=== PATIENT | female | born 1970 | race Caucasian/White ===

== ENCOUNTER 2016-11-08 10:56 | Emergency (ER) | payer BC, OTHER ==
[2016-11-08 11:00] VITALS: BMI 24.7
[2016-11-08 11:01] VITALS: BP 131/79; PULSE 70; RESP 18; TEMP 98.7; O2SAT 97
--- NOTE | 2016-11-08 11:12 | C.PDOC ---
History Of Present Illness 46 yr old female presents to the ER with complaints of right lower wisdom tooth pain for 1 day. Patient states she saw her dentist but was told "if less then 4 infections a year, there is no need to have tooth pulled. Patient states she was sent home with no medicine and the pain returned when she went back home. Patient denies fever, chills, mouth swelling, neck pain or headache. Time Seen by Provider: 11/08/16 11:07 Chief Complaint (Nursing): Dental Pain History Per: Patient History/Exam Limitations: no limitations Onset/Duration Of Symptoms: Days Past Medical History Reviewed: Historical Data, Nursing Documentation, Vital Signs Vital Signs: Last Vital Signs Temp 98.7 F 11/08/16 11:00 Pulse 70 11/08/16 11:00 Resp 18 11/08/16 11:00 BP 131/79 11/08/16 11:00 Pulse Ox 97 11/08/16 11:19 Family History: States: No Known Family Hx - Social History Hx Alcohol Use: No Hx Substance Use: No - Immunization History Hx Tetanus Toxoid Vaccination: No Hx Influenza Vaccination: No Hx Pneumococcal Vaccination: No Review Of Systems Except As Marked, All Systems Reviewed And Found Negative. Constitutional: Negative for: Fever, Chills ENT: Positive for: Other ((+) Right lower wisdome tooth pain ). Negative for: Mouth Swelling Musculoskeletal: Negative for: Neck Pain Neurological: Negative for: Headache Physical Exam - Physical Exam Appears: Well, Non-toxic, No Acute Distress Skin: Warm, Dry, No Rash Head: Atraumatic, Normacephalic Oral Mucosa: Moist Teeth: Caries, Tender To Palpation (Right lower wisdom tooth ) Gingiva: No Erythema, No Swelling, No Tender, No Bleeding Throat: Normal, No Erythema, No Exudate, No Drooling Lymphatic: No Adenopathy Chest: Symmetrical, No Tenderness Cardiovascular: Rhythm Regular, No Murmur Extremity: Normal ROM, No Swelling Neurological/Psych: Oriented x3, Normal Speech ED Course And Treatment O2 Sat by Pulse Oximetry: 97 Medical Decision Making Medical Decision Making: PLAN: * Amoxicillin PO * Tramadol PO Disposition - Disposition [facility] [Outside] [facility]Outside[facility] Disposition: HOME/ ROUTINE Disposition Time: 11:30 Condition: STABLE Additional Instructions: please see your dentist, clinic. return to er with worsening symptoms or concerns. Prescriptions: Amoxicillin [Amoxil 500 mg Cap] 500 mg PO TID #21 cap traMADol [Ultram] 50 mg PO Q8 PRN #10 tab PRN Reason: Pain, Severe (8-10) Instructions: Dental Caries (ED), Toothache (ED) - Clinical Impression Clinical Impression: Dental caries, Toothache - Scribe Statement The provider has reviewed the documentation as recorded by the Jared Wilkerson Provider Attestation: All medical record entries made by the Jared were at my direction and personally dictated by me. I have reviewed the chart and agree that the record accurately reflects my personal performance of the history, physical exam, medical decision making, and the department course for this patient. I have also personally directed, reviewed, and agree with the discharge instructions and disposition.
== END 2016-11-08 11:37 | disposition home or self-care (01) ==
LOC: C.ER 10:56
DX: K02.9 Dental caries, unspecified (principal)